=== PATIENT | male | born 1960 | race African-American/Black ===

== ENCOUNTER 2017-03-21 15:11 | Emergency (ER) | payer OTHER ==
[~2017-03-21] VITALS: Ht 177.8 cm; Wt 89.0 kg
[~2017-03-21 15:11] MED LIST: CYCL-36 PO
[2017-03-21 15:13] VITALS: BP 132/86; PULSE 73; RESP 22; O2SAT 99
--- NOTE | 2017-03-21 15:16 | PD ---
Physical Exam Time Seen by Provider: 15:13 Narrative 56 y/o male presents for evaluation of R shoulder pain which started 3 days ago when lifting a trashbag out of a trashcan. Vital signs reviewed. Seen at triage desk. Awaiting bed placement. Data Data Last Documented VS Vital Signs Date Time Temp Pulse Resp B/P Pulse Ox O2 Delivery O2 Flow Rate FiO2 03/21/17 15:13 73 22 132/86 99 MDM Medical Record Reviewed: Yes Supervised Visit with SANDEEP: Elan Singleton March 21, 2017 15:16
[2017-03-21 15:46] VITALS: TEMP 97.8
[2017-03-21] MEDS ORDERED: CYCL1TAB29 PO (15:48)
[2017-03-21] MEDS ORDERED: IBUP800T23 PO (15:48)
--- NOTE | 2017-03-21 15:49 | PD ---
HPI Chief Complaint: Injury Time Seen by Provider: 15:46 Travel History International Travel<30 days: No Contact w/Intl Traveler<30days: No Traveled to known affect area: No PFSH Past Medical History Heart Rhythm Problems: No Cardiac Catheterization: No Cardiovascular Problems: Yes (chest pain) High Cholesterol: No Chest Pain: Yes Congestive Heart Failure: No Diabetes: No Diminished Hearing: No Hypertension: Yes Musculoskeletal: Yes (L1 & S5 = WHEEL CHAIR FOR 3 YRS ([id number])) Myocardial Infarction: No Tetanus Vaccination: > 5 Years Influenza Vaccination: No Past Surgical History Coronary Artery Bypass Graft: No Other Surgery: Yes ("HYDROECNITIS" 1994, , ) Social History Alcohol Use: No Tobacco Use: Yes (4-5 CIGS DAILY) Substance Use: No Allergies-Medications (Allergen,Severity, Reaction): Coded Allergies: No Known Allergies (Verified , 09/05/14) Reported Meds & Prescriptions Reported Meds & Active Scripts Active Flexeril (Cyclobenzaprine HCl) 10 Mg Tab 10 Mg PO TID PRN Ibuprofen 800 Mg Tab 800 Mg PO Q6HR PRN Reported Flexeril (Cyclobenzaprine HCl) 10 Mg Tab 10 Mg PO HS Data Data Last Documented VS Vital Signs Date Time Temp Pulse Resp B/P Pulse Ox O2 Delivery O2 Flow Rate FiO2 03/21/17 15:46 97.8 03/21/17 15:13 73 22 132/86 99 Orders Ibuprofen (Motrin) (03/21/17 16:00) Methocarbamol (Robaxin) (03/21/17 16:00) Sling Cradle Arm (03/21/17 ) Sling Cradle Arm (03/21/17 ) MDM Medical Decision Making Medical Screen Exam Complete: Yes Emergency Medical Condition: Yes Medical Record Reviewed: Yes Diagnosis Primary Impression: Right shoulder strain Qualified Code: S46.911A - Right shoulder strain, initial encounter Referrals: Primary Care Physician Patient Instructions: General Instructions, Shoulder Sprain (ED) Departure Forms: Tests/Procedures, Work Release Enter return to work date: March 27, 2017 Additional Instructions: Tylenol or ibuprofen as needed and as directed to reduce pain and inflammation Rest, ice, and compress extremity to decrease pain and inflammation Arm sling for support Avoid aggravating activity; increase activity as tolerated Follow-up with primary care provider Follow-up with orthopedics as needed Return to the emergency department immediately with worsening symptoms Med/Other Pt SpecificInfo: Prescription(s) given Scripts Cyclobenzaprine (Flexeril)10 Mg Tab10 Mg PO TID PRN (MUSCLE SPASM) #30 TAB Ref 0 Prov:Valerie Estevez 03/21/17 Ibuprofen 800 Mg Cot349 Mg PO Q6HR PRN (PAIN) #30 TAB Ref 0 Prov:Valerie Estevez 03/21/17 Disposition: 01 DISCHARGE HOME Condition: Stable Valerie Estevez March 21, 2017 15:49
--- NOTE | 2017-03-21 15:55 | PD ---
HPI Chief Complaint: Injury Time Seen by Provider: 15:51 Travel History International Travel<30 days: No Contact w/Intl Traveler<30days: No Traveled to known affect area: No History of Present Illness HPI 56-year-old male presents to the emergency Department with complaint of right shoulder pain that radiates down his right arm and up to his right lateral neck 3 days after lifting a bag of trash out of a garbage can. Denies paresthesias , loss of sensation, decreased range motion, decreased strength to the affected extremity. Denies fever, vomiting. Has taken ibuprofen with some relief of pain. Has also ice the shoulder with some relief of pain. Pain is worse with movement. No known allergies. Has no other medical complaints. No other modifying factors or associated signs and symptoms. PFSH Past Medical History Heart Rhythm Problems: No Cardiac Catheterization: No Cardiovascular Problems: Yes (chest pain) High Cholesterol: No Chest Pain: Yes Congestive Heart Failure: No Diabetes: No Diminished Hearing: No Hypertension: Yes Musculoskeletal: Yes (L1 & S5 = WHEEL CHAIR FOR 3 YRS ([id number])) Myocardial Infarction: No Tetanus Vaccination: > 5 Years Influenza Vaccination: No Past Surgical History Coronary Artery Bypass Graft: No Other Surgery: Yes ("HYDROECNITIS" 1994, , ) Social History Alcohol Use: No Tobacco Use: Yes (4-5 CIGS DAILY) Substance Use: No Allergies-Medications (Allergen,Severity, Reaction): Coded Allergies: No Known Allergies (Verified , 09/05/14) Reported Meds & Prescriptions Reported Meds & Active Scripts Active Flexeril (Cyclobenzaprine HCl) 10 Mg Tab 10 Mg PO TID PRN Ibuprofen 800 Mg Tab 800 Mg PO Q6HR PRN Reported Flexeril (Cyclobenzaprine HCl) 10 Mg Tab 10 Mg PO HS Review of Systems Except as stated in HPI: all other systems reviewed are Neg Physical Exam Narrative GENERAL: Well-nourished, well-developed -[place] male patient, in no acute distress SKIN: Warm and dry. HEAD: Atraumatic. Normocephalic. EYES: Pupils equal and round. No scleral icterus. No injection or drainage. ENT: Mucosa pink and moist. Airway patent. NECK: Moving freely. No midline point tenderness on palpation of the cervical spine. Active rotation to 45 to the left and right. Reproducible tenderness to the right lateral musculature of the neck. CARDIOVASCULAR: Regular rate and rhythm. RESPIRATORY: No accessory muscle use. GASTROINTESTINAL: Rounded. MUSCULOSKELETAL: Right shoulder is without erythema, edema, tenderness on palpation; with full range of motion and greater than 45 abduction; no obvious deformity; joint stable; shoulders equal. No obvious deformities. Right upper extremities supple and non-tense with 2+ radial pulses and sensory intact without erythema or edema. 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 No clubbing. No cyanosis. No edema. 5/5 strength. NEUROLOGICAL: Awake and alert. Oriented 3. No obvious cranial nerve deficits. Motor grossly within normal limits. Normal speech. PSYCHIATRIC: Appropriate mood and affect; insight and judgment normal. Data Data Last Documented VS Vital Signs Date Time Temp Pulse Resp B/P Pulse Ox O2 Delivery O2 Flow Rate FiO2 03/21/17 15:46 97.8 03/21/17 15:13 73 22 132/86 99 Orders Ibuprofen (Motrin) (03/21/17 16:00) Methocarbamol (Robaxin) (03/21/17 16:00) Sling Cradle Arm (03/21/17 ) MDM Medical Decision Making Medical Screen Exam Complete: Yes Emergency Medical Condition: Yes Medical Record Reviewed: Yes Differential Diagnosis Shoulder strain, rotator cuff tear; less likely fracture, dislocation, joint separation Narrative Course 56-year-old male with strain of right shoulder. I do not suspect fracture, dislocation, joint separation and feel that imaging is not necessary at this time. Ibuprofen Robaxin administered in the ER. Ibuprofen and Flexeril prescribed for home. Arm sling provided for support for home. Instructed patient to minimize use of arm sling and he verbalized understanding and agreement. Instructed patient to follow up with orthopedics if symptoms persist greater than 10-14 days. Patient verbalizes understanding and agreement with treatment plan. Patient is medically cleared and stable for discharge. Discussed reasons to return to the emergency department. Instructed patient to follow up with primary care provider. Patient agrees with treatment plan. The patients vital signs are stable and the patient is stable for outpatient follow- up and treatment. Patient discharged home, stable and in no acute distress. Diagnosis Primary Impression: Right shoulder strain Qualified Code: S46.911A - Right shoulder strain, initial encounter Referrals: Primary Care Physician Patient Instructions: General Instructions, Shoulder Sprain (ED) Departure Forms: Work Release, Enter return to work date: Tests/Procedures Additional Instructions: Tylenol or ibuprofen as needed and as directed to reduce pain and inflammation Rest, ice, and compress extremity to decrease pain and inflammation Arm sling for support Avoid aggravating activity; increase activity as tolerated Follow-up with primary care provider Follow-up with orthopedics as needed Return to the emergency department immediately with worsening symptoms Scripts Cyclobenzaprine (Flexeril)10 Mg Tab10 Mg PO TID PRN (MUSCLE SPASM) #30 TAB Ref 0 Prov:Valerie Estevez 03/21/17 Ibuprofen 800 Mg Utd399 Mg PO Q6HR PRN (PAIN) #30 TAB Ref 0 Prov:Valerie Estevez 03/21/17 Disposition: 01 DISCHARGE HOME Condition: Stable Valerie Estevez March 21, 2017 15:55
[2017-03-21] MEDS ORDERED: METHOCARBAMOL 500 MG TAB PO ONE (16:00)
[2017-03-21] MEDS ORDERED: IBUPROFEN 800 MG TAB PO ONE (16:00)
== END 2017-03-21 16:24 | disposition home or self-care (01) ==
LOC: NEPK 15:11
DX: S46.911A Strain of unspecified muscle, fascia and tendon at shoulder and upper arm level, right arm, initial encounter (principal); I10 Essential (primary) hypertension; F17.210 Nicotine dependence, cigarettes, uncomplicated; X50.0XXA Overexertion from strenuous movement or load, initial encounter; Y93.E9 Activity, other interior property and clothing maintenance; Y92.008 Other place in unspecified non-institutional (private) residence as the place of occurrence of the external cause; Y99.8 Other external cause status
CPT/HCPCS: 99283